=== PATIENT | female | born 1950 | race Caucasian/White ===

== ENCOUNTER → 2016-12-05 | Outpatient (CLI) | payer OTHER ==
[~2016-12-05] VITALS: Ht 157.5 cm; Wt 82.6 kg
[~2016-12-05] MED LIST: AMBIEN 5 MG TABL5 M1 PO; ASPIR 8181 MG PO; CALCIUM 600 +1 EAC1 PO; MEVACOR10 MG PO; NIACIN 500 MG500 M1 PO; VITAMIN D3400 UNIT PO
--- NOTE | ~2016-12-05 | P ---
[facility] [place] [address] PROCEDURE REPORT Name: ASIM VICENTE Room #: REG [facility]#: [id number] Admission: 12/05/16 Attend Phys: Marino Rosales MD Discharge: Date of : 52 Report #: [id number] THIS REPORT FOR: //name// CC: Marino Herr MD BRIEF HISTORY: The patient is a 66-year-old woman with a history of a highly dysplastic polyp in 2001, for surveillance colonoscopy. PREOPERATIVE DIAGNOSIS: History of advanced colon adenoma. POSTOPERATIVE DIAGNOSES: 1. Diminutive polyp, hepatic flexure. 2. Diminutive polyp, proximal transverse colon. 3. Moderate diverticulosis coli with few scattered diverticula in proximal colon. MEDICATIONS: Deep sedation with propofol per anesthesia. SPECIMENS: 1. Hepatic flexure polyp. 2. Polyp, proximal transverse colon. ESTIMATED BLOOD LOSS: 3 mL. PROCEDURE: Colonoscopy to cecum and terminal ileum with biopsy. FINDINGS: Prior to propofol sedation, procedure of colonoscopy discussed with the patient as well as potential risks, benefits, and complications. She indicates she understands and desires to proceed. With the patient in left lateral decubitus position, digital examination was completed, which revealed no abnormalities. Subsequently, the [employer] video colonoscope was introduced into the rectum, advanced under direct vision to the cecum. Done with minimal difficulty. The cecum was identified by the ileocecal valve and appendiceal orifice. I was able to visualize the distal segment of terminal ileum, which was inspected and noted to be unremarkable. At that point, the scope was slowly withdrawn and careful circumferential views obtained including retroflexing the scope in the ascending colon. Upon slow withdrawal of the scope, the prep was noted to be good. The mucosa was within normal limits, normal vascular pattern and normal light reflex. As we withdrew the scope, she was found to have a diminutive polyp in the hepatic flexure and also in the proximal transverse colon. Both of these polyps were removed by biopsy. In addition, a few scattered diverticula were seen in the proximal colon, but no additional abnormalities were noted until the distal colon was reached and there was noted to be a moderately severe diverticular disease in the sigmoid colon [facility] [address] [place] [address] PROCEDURE REPORT Name: VICENTEASIM S [id number] Admission: 12/05/16 Attend Phys: Marino Rosales MD Discharge: Date of : 52 Report #: [id number] without endoscopic evidence of diverticulitis. As the scope was withdrawn, the mucosa remained normal and no additional polyps were seen. Scope was withdrawn in the rectum. Upon retroflexion, no abnormalities were seen. Scope was withdrawn. The patient tolerated the procedure well. CONDITION OF THE PATIENT UPON DISCHARGE: Following procedure, the patient drowsy, aroused, conversant and will be discharged home when fully ambulatory. INSTRUCTIONS TO THE PATIENT AND FAMILY AT THE TIME OF DISCHARGE: The patient with history of an advanced adenoma with a highly dysplastic polyp in 2001, for surveillance exam. Exam today revealed 2 diminutive polyps. We will follow up on the path, but at this point in time I think we could have her return in 5 years for her next surveillance colonoscopy. <ELECTRONICALLY SIGNED> By: Marino Rosales MD 12/10/16 1742 [id number] Marino Rosales MD /nt
--- NOTE | ~2016-12-05 | S ---
[facility] [place] [address] SURGICAL PATH RPT PROCEDURE Name: ASIM HEAD [id number] Admission: 12/05/16 Date of : 52 Discharge: Report #: [id number] Path Case #: [id number] PATHOLOGY REPORT COLLECTION DATE: 12/05/2016 RECEIVED DATE: 12/05/2016 SUBMITTING PHYS: Dr. Marino Rosales OTHER PHYS: Dr. Deanna Herr SPECIMEN(S) RECEIVED: A.Polyp at hepatic flexure B.Proximal transverse polyp * * * * * * * * * * * * FINAL DIAGNOSIS: A. Polyp, hepatic flexure, endoscopic biopsy: - Minute tubular adenoma. - Negative for high grade dysplasia. B. Polyp, proximal transverse polyp, endoscopic biopsy: - Minute tubular adenoma. - Negative for high grade dysplasia. (IUV:csd; d/t: 12/09/2016) PATHOLOGIST: Ella Rowley M.D. REPORT ELECTRONICALLY SIGNED BY: Ella Rowley M.D. DATE/TIME: 12/09/2016 14:03 * * * * * * * * * * * * GROSS PATHOLOGY: A. Received in formalin labeled "Asim Head, polyp at hepatic flexure," are [address] soft tissue measuring 0.7 x 0.3 x 0.2 cm in aggregate dimensions and ranging from 0.2 to 0.5 cm in maximum dimension. The specimen is submitted entirely in cassette A1. B. Received in formalin labeled " Asim Head, proximal transverse polyp," are [address] soft tissue measuring 1.1 x 0.2 x 0.2 cm in aggregate dimensions and ranging from 0.5 to 0.6 cm in maximum dimension. The specimen is submitted entirely in cassette B1. (MATTY; 12/06/2016) CLINICAL HISTORY: Screening INITIAL CPT CODE(S): [facility] [place] [address] SURGICAL PATH RPT PROCEDURE Name: ASIM HEAD Room #: [facility]#: [id number] Admission: 12/05/16 Date of : 52 Discharge: Report #: [id number] Path Case #: [id number]; [id number] B; [id number] Professional services performed by [facility] at [address] , [place] [address] Technical services performed by [facility] at [address] [place] [address], [place] [address]. [facility] [address] [place] [address] PHONE: [phone] DIRECTOR: Tian Goncalves M.D. * * * END OF REPORT * * *
== END ==
LOC: GI 08:19
DX: Z08 Encounter for follow-up examination after completed treatment for malignant neoplasm (principal); D12.3 Benign neoplasm of transverse colon; Z85.038 Personal history of other malignant neoplasm of large intestine; K63.5 Polyp of colon; K57.30 Diverticulosis of large intestine without perforation or abscess without bleeding; I10 Essential (primary) hypertension
CPT/HCPCS: 62110; 62900